=== PATIENT | female | born 1985 | race Caucasian/White ===

== ENCOUNTER 2016-11-02 11:47 | Emergency (ER) | payer OTHER ==
--- NOTE | 2016-11-02 14:54 | ED NURSING NOTES ---
Clinical Report - Nurses [place] [address] [place] [address] 11/02/2016 11:48 [id number] TRI[facility] Triage time 11:56. Acuity: LEVEL 3. Chief Complaint: INJURY TO THE RIGHT INDEX FINGER. CHEKO COMA SCORE: Cheko Coma Scale: 15- eyes open spontaneously (4); best verbal response- oriented x 4 (5); best motor response- obeys commands (6). --12: Tatyana Yip R.N. 11:56 11/02/16. BP: 118/51. HR: 80. RR: 18. O2 saturation: 97%. Temp: 97.8 F (oral). Pain level now: 06/03. --12:01 Tatyana Yip R.N. Weight: 77.1 kg stated. Height/Length: 61 inches Per Patient. BMI: 32.1. --11:59 Tatyana Yip R.N. Medications None. --11:58 Tatyana Yip R.N. Medication/allergy information source: the patient. --12:01 Tatyana Yip R.N. Allergies Naproxen. Valium. --11:58 Tatyana Yip R.N. History Arrived by private vehicle. Historian: patient. Accompanied by family. Primary physician ([facility]). This occurred just prior to arrival. She sustained a laceration from a sharp edge. PAST MEDICAL HX: Tetanus status: unknown. Last normal menstrual period- Oct 2016. SOCIAL HX: Heavy tobacco smoker- 1 pack per day. No alcohol use or drug use. FALL RISK ASSESSMENT: Fall risk assessment completed. No fall risk identified. FUNCTIONAL ASSESSMENT: Functional assessment: no impairments noted. LEARNING NEEDS ASSESSMENT: The learning needs assessment revealed no barriers. --12:01 Tatyana Yip R.N. PROBLEMS: Dental Pain. Sprain. Care. Problems. --11:58 Tatyana Yip R.N. ADDITIONAL SURGERIES: . Dilatation & Curettage. --11:58 Tatyana Yip R.N. Assessment GENERAL / NEURO / PSYCH: The patient is awake and alert, is oriented and cooperative and appears uncomfortable. She has good eye contact. ( finger cleaned and 4x4 applied). RESPIRATORY: Respirations not labored. SKIN: Skin is warm and dry. --12:01 Tatyana Yip R.N. Interventions ID and allergy band on patient. To waiting room. --12:01 Tatyana Yip R.N. NURSING PROGRESS NOTES 13:35 no answer when called, the [facility] said the pt had to run an errand and would be back in 5 minutes. --13:56 Tatyana Yip R.N. Wound cleansed with sterile saline. --14:32 Ayanna Erazo ER Tech1 ( pt. comes when called at 1415. States she had to take her friend to work.). --14:33 Ayanna Erazo ER Tech1 Applied dressing consisting of Band-Aid, following the application of antibiotic ointment. --14:57 Ayanna Erazo ER Tech1 14:59 11/02/2016 TDAP IM 0.5 mL given. (Lot#: [id number]). Given in the left deltoid. Allergies verified and confirmed 5 rights. Vaccine information statement provided to the patient (adacel). --14:59 Aide Henderson R.N. DISPOSITION / DISCHARGE Departure time: 1505. Condition at departure: improved and stable. Reviewed warnings. Reviewed medication(s) side effects information. Treatments reviewed. Reviewed referrals. Patient verbalized understanding. Written instructions provided in Romanian. The patient was discharged by the physician child care assistant. She was discharged home and accompanied by family. She left the Emergency Department ambulatory and via private vehicle. Patient driving. --15:06 Aide Henderson R.N. 15:04 11/02/16. BP: 118/51. HR: 80. RR: 18. O2 saturation: 97%. Temp: 97.8 F. Pain level now: 06/03. --15:06 Aide Henderson R.N. ( pt refused bandage.). --15:06 Aide Henderson R.N. Locked/Released at 11/06/2016 11:50 by Aide Henderson R.N.
--- NOTE | 2016-11-02 14:54 | ED CLINICAL REPORT ---
Clinical Report - Physicians/Mid Levels [facility] [address] [place] [address] 11/02/2016 11:48 [id number] Time Seen: 14:46 Nov 02 2016. Arrived- By private vehicle. Historian- patient. HISTORY OF PRESENT ILLNESS Chief Complaint: Injury to finger. The injury happened just prior to arrival. Occurred at home. The patient sustained a laceration. Patient is experiencing mild pain. Patient denies injury to the head or neck. ( patient with a right index finger laceration, no prior injury). REVIEW OF SYSTEMS The patient sustained a single laceration. No numbness. All systems otherwise negative, except as recorded above. PAST HISTORY The patient's dominant hand is the right. She has not had a prior injury to the same area. Tetanus immunization status is unknown. SOCIAL HISTORY Smoker- current status unknown. No alcohol use or drug use. ADDITIONAL NOTES The nursing notes have been reviewed. PHYSICAL EXAM Vital Signs: 11/02/2016 11:56 BP: 118/51. HR: 80. RR: 18. O2 saturation: 97%. Temp: 97.8 F. Pain level now: 8/10. Appearance: Alert. No acute distress. Head: Head atraumatic. ENT: Ears normal. Nose normal. CVS: Normal heart rate and rhythm. Heart sounds normal. Respiratory: No respiratory distress. Breath sounds normal. Skin: Skin warm. Extremities: Right index finger: 1.0 cm laceration of the dorsal aspect and middle phalanx- SEE LACERATION PROCEDURE NOTE #1; (dorsal lac between pip and dip 2 cm). No foreign body. No limitation in movement. No subungual hematoma or amputation present. Neuro, Vascular and Tendons: Vascular status intact. No pulse deficit present. Capillary refill not prolonged. Sensation intact. Motor intact. No functional tendon deficit or tendon injury seen. Neuro: Oriented X 3. PROGRESS AND PROCEDURES Laceration Repair: Time: 14:47 Nov 02 2016. Location: (r. index). Time-out completed immediately before the procedure. Length: 1 cm. Complexity: simple (local anesthesia used and sutured). Wound depth/shape- linear and involving fascia. Wound is clean. Anesthesia provided by digital block using 0.25% Marcaine. Prepped with Betadine. Wound explored, cleansed and irrigated. Closure of superficial layer: interrupted 5-0 (3 sutures, 5-0 non absorb). Post-procedure: she is stable and there are no complications. Bleeding is controlled and neuro-vascular status is intact distal to the wound. Dressing applied. Tetanus immunization given. Course of Care: patient here in the ER with a laceration, dorsal nature patient stable. No signs of ligamentous injury. no fb. 11/02/2016 11:56 BP: 118/51. HR: 80. RR: 18. O2 saturation: 97%. Temp: 97.8 F. Pain level now: 8/10. Patient is stable. Symptoms better. Patient/family counseled. Disposition: Discharged. Condition: good. CLINICAL IMPRESSION Single deep laceration to the right index finger.No foreign body present. INSTRUCTIONS Elevate affected areas above chest level. Protect wound and keep wound area clean. Apply bacitracin twice daily. Limit use of your hand. Follow-up: Follow up with your doctor in seven days. (Electronically signed by Nata Horan P.A.-C 11/02/2016 14:49)
--- NOTE | 2016-11-02 14:54 | ED ORDER SUMMARY ---
..... Patient: HENRRY WHITTINGTON OrderSheet VisitID: [id number] [address] [place] [address] 31y, F Registration Date/Time: 11/02/2016 ORDER SHEET Weight: 77.1 kg (stated) Allergies: Naproxen, Valium GENERAL ORDERS: MEDICATION ORDERS: Tdap IM 0.5 mL (NOW, per protocol) (14:33 11/02/2016 Rolan Hines) (Ack 14:54 SStone R.N.) (14:59 SStone R.N.) IV FLUIDS: ORDER SHEET NOTES: [Electronically signed by Nata Horan P.A.-C (14:49 11/02/2016)] [Electronically signed by Aide Henderson R.N. (11:50 11/06/2016)] [Electronically locked/signed by Aide Henderson R.N. (11:50 11/06/2016)]
--- NOTE | 2016-11-02 14:54 | ED NURSING NOTES ---
Clinical Report - Nurses [place] [address] [place] [address] 11/02/2016 11:48 [id number] TRIAGE Triage time 11:56. Acuity: LEVEL 3. Chief Complaint: INJURY TO THE RIGHT INDEX FINGER. CHEKO COMA SCORE: Cheko Coma Scale: 15- eyes open spontaneously (4); best verbal response- oriented x 4 (5); best motor response- obeys commands (6). --12: Tatyana Yip R.N. 11:56 11/02/16. BP: 118/51. HR: 80. RR: 18. O2 saturation: 97%. Temp: 97.8 F (oral). Pain level now: 06/03. --12:01 Tatyana Yip R.N. Weight: 77.1 kg stated. Height/Length: 61 inches Per Patient. BMI: 32.1. --11:59 Tatyana Yip R.N. Medications None. --11:58 Tatyana Yip R.N. Medication/allergy information source: the patient. --12:01 Tatyana Yip R.N. Allergies Naproxen. Valium. --11:58 Tatyana Yip R.N. History Arrived by private vehicle. Historian: patient. Accompanied by family. Primary physician ([facility]). This occurred just prior to arrival. She sustained a laceration from a sharp edge. PAST MEDICAL HX: Tetanus status: unknown. Last normal menstrual period- Oct 2016. SOCIAL HX: Heavy tobacco smoker- 1 pack per day. No alcohol use or drug use. FALL RISK ASSESSMENT: Fall risk assessment completed. No fall risk identified. FUNCTIONAL ASSESSMENT: Functional assessment: no impairments noted. LEARNING NEEDS ASSESSMENT: The learning needs assessment revealed no barriers. --12:01 Tatyana Yip R.N. PROBLEMS: Dental Pain. Sprain. Care. Problems. --11:58 Tatyana Yip R.N. ADDITIONAL SURGERIES: . Dilatation & Curettage. --11:58 Tatyana Yip R.N. Assessment GENERAL / NEURO / PSYCH: The patient is awake and alert, is oriented and cooperative and appears uncomfortable. She has good eye contact. ( finger cleaned and 4x4 applied). RESPIRATORY: Respirations not labored. SKIN: Skin is warm and dry. --12:01 Tatyana Yip R.N. Interventions ID and allergy band on patient. To waiting room. --12:01 Tatyana Yip R.N. NURSING PROGRESS NOTES 13:35 no answer when called, [facility] said the pt had to run an errand and would be back in 5 minutes. --13:56 Tatyana Yip R.N. Wound cleansed with sterile saline. --14:32 Ayanna Erazo ER Tech1 ( pt. comes when called at 1415. States she had to take her friend to work.). --14:33 Ayanna Erazo ER Tech1 Applied dressing consisting of Band-Aid, following the application of antibiotic ointment. --14:57 Ayanna Erazo ER Tech1 14:59 11/02/2016 TDAP IM 0.5 mL given. (Lot#: [id number]). Given in the left deltoid. Allergies verified and confirmed 5 rights. Vaccine information statement provided to the patient (adacel). --14:59 Aide Henderson R.N. DISPOSITION / DISCHARGE Departure time: 1505. Condition at departure: improved and stable. Reviewed warnings. Reviewed medication(s) side effects information. Treatments reviewed. Reviewed referrals. Patient verbalized understanding. Written instructions provided in Setswana. The patient was discharged by the physician recreation assistant. She was discharged home and accompanied by family. She left the Emergency Department ambulatory and via private vehicle. Patient driving. --15:06 Aide Henderson R.N. 15:04 11/02/16. BP: 118/51. HR: 80. RR: 18. O2 saturation: 97%. Temp: 97.8 F. Pain level now: 06/03. --15:06 Aide Henderson R.N. ( pt refused bandage.). --15:06 Aide Henderson R.N. Locked/Released at 11/06/2016 11:50 by Aide Henderson R.N.
--- NOTE | 2016-11-02 14:54 | ED CLINICAL REPORT ---
Clinical Report - Physicians/Mid Levels [facility] [address] [place] [address] 11/02/2016 11:48 [facility]ITTINGTON [id number] Time Seen: 14:46 Nov 02 2016. Arrived- By private vehicle. Historian- patient. HISTORY OF PRESENT ILLNESS Chief Complaint: Injury to finger. The injury happened just prior to arrival. Occurred at home. The patient sustained a laceration. Patient is experiencing mild pain. Patient denies injury to the head or neck. ( patient with a right index finger laceration, no prior injury). REVIEW OF SYSTEMS The patient sustained a single laceration. No numbness. All systems otherwise negative, except as recorded above. PAST HISTORY The patient's dominant hand is the right. She has not had a prior injury to the same area. Tetanus immunization status is unknown. SOCIAL HISTORY Smoker- current status unknown. No alcohol use or drug use. ADDITIONAL NOTES The nursing notes have been reviewed. PHYSICAL EXAM Vital Signs: 11/02/2016 11:56 BP: 118/51. HR: 80. RR: 18. O2 saturation: 97%. Temp: 97.8 F. Pain level now: 8/10. Appearance: Alert. No acute distress. Head: Head atraumatic. ENT: Ears normal. Nose normal. CVS: Normal heart rate and rhythm. Heart sounds normal. Respiratory: No respiratory distress. Breath sounds normal. Skin: Skin warm. Extremities: Right index finger: 1.0 cm laceration of the dorsal aspect and middle phalanx- SEE LACERATION PROCEDURE NOTE #1; (dorsal lac between pip and dip 2 cm). No foreign body. No limitation in movement. No subungual hematoma or amputation present. Neuro, Vascular and Tendons: Vascular status intact. No pulse deficit present. Capillary refill not prolonged. Sensation intact. Motor intact. No functional tendon deficit or tendon injury seen. Neuro: Oriented X 3. PROGRESS AND PROCEDURES Laceration Repair: Time: 14:47 Nov 02 2016. Location: (r. index). Time-out completed immediately before the procedure. Length: 1 cm. Complexity: simple (local anesthesia used and sutured). Wound depth/shape- linear and involving fascia. Wound is clean. Anesthesia provided by digital block using 0.25% Marcaine. Prepped with Betadine. Wound explored, cleansed and irrigated. Closure of superficial layer: interrupted 5-0 (3 sutures, 5-0 non absorb). Post-procedure: she is stable and there are no complications. Bleeding is controlled and neuro-vascular status is intact distal to the wound. Dressing applied. Tetanus immunization given. Course of Care: patient here in the ER with a laceration, dorsal nature patient stable. No signs of ligamentous injury. no fb. 11/02/2016 11:56 BP: 118/51. HR: 80. RR: 18. O2 saturation: 97%. Temp: 97.8 F. Pain level now: 8/10. Patient is stable. Symptoms better. Patient/family counseled. Disposition: Discharged. Condition: good. CLINICAL IMPRESSION Single deep laceration to the right index finger.No foreign body present. INSTRUCTIONS Elevate affected areas above chest level. Protect wound and keep wound area clean. Apply bacitracin twice daily. Limit use of your hand. Follow-up: Follow up with your doctor in seven days. (Electronically signed by Nata Horan P.A.-C 11/02/2016 14:49)
--- NOTE | 2016-11-02 14:54 | ED ORDER SUMMARY ---
..... Patient: HENRRY WHITTINGTON OrderSheet [facility] VisitID: [id number] [address] [place] [address] 31y, F Registration Date/Time: 11/02/2016 ORDER SHEET Weight: 77.1 kg (stated) Allergies: Naproxen, Valium GENERAL ORDERS: MEDICATION ORDERS: Tdap IM 0.5 mL (NOW, per protocol) (14:33 11/02/2016 Rolan Hines) (Ack 14:54 SStone R.N.) (14:59 SStone R.N.) IV FLUIDS: ORDER SHEET NOTES: [Electronically signed by Nata Horan P.A.-C (14:49 11/02/2016)] [Electronically signed by Aide Henderson R.N. (11:50 11/06/2016)] [Electronically locked/signed by Aide Henderson R.N. (11:50 11/06/2016)]
--- NOTE | 2016-11-06 11:51 | ED MAR SUMMARY ---
..... Medication Administration Record [facility] [address] [place] [address] Patient: HENRRY WHITTINGTON Visit ID: [id number] 31y, F Weight: 77.1 kg Height/Length: 61 in BMI: 32.1 ALLERGIES: Naproxen, Valium Given 14:59 11/02/2016 Aide Henderson R.N. Medication Administered: TDAP [IM], Dose: 0.5 mL IM. Medication Ordered: Tdap IM 0.5 mL (NOW, per protocol).
--- NOTE | 2016-11-06 11:51 | ED MAR SUMMARY ---
..... Medication Administration Record [facility] [address] [place] [address] Patient: HENRRY WHITTINGTON Visit ID: [id number] 31y, F Weight: 77.1 kg Height/Length: 61 in BMI: 32.1 ALLERGIES: Naproxen, Valium Given 14:59 11/02/2016 Aide Henderson R.N. Medication Administered: TDAP [IM], Dose: 0.5 mL IM. Medication Ordered: Tdap IM 0.5 mL (NOW, per protocol).
--- NOTE | 2016-11-06 11:51 | ED DISCHARGE INSTRUCTIONS ---
Patient: HENRRY WHITTINGTON General Instructions [facility] VisitID: [id number] [place] [address] 31y, F Registration Date/Time: 11/02/2016 Single deep laceration to the right index finger.No foreign body present. INSTRUCTIONS Elevate affected areas above chest level. Protect wound and keep wound area clean. Apply bacitracin twice daily. Limit use of your hand. Follow-up: Follow up with your doctor in seven days. ADDITIONAL INFORMATION Laceration (All Closures) Alaceration is a cut through the skin. This will usually require stitches (sutures) or gabe if it is deep. Minor cuts may be treated with a surgical tape closure orskin glue. Home care The following guidelines will help you care for your laceration at home: Extremity, face, or trunk wounds Keep the wound clean and dry. If a bandage was applied and it becomes wet or dirty, replace it. Otherwise, leave it in place for the first 24 hours. If stitches or gabe were used, clean the wound daily. After removing the bandage, wash the area with soap and water. Use a wet cotton swab to loosen and remove any blood or crust that forms. The doctor may prescribe an antibiotic cream or ointment to prevent infection. Do not stop taking this medication until you have finished the prescribed course or the doctor tells you to stop. The doctor may also prescribe medications for pain. Follow the doctors instructions for taking these medications. You may remove the bandage to shower as usual after the first 24 hours, but do not soak the area in water (no swimming) until the stitches or gabe are removed. If surgical tape was used, keep the area clean and dry. If it becomes wet, blot it dry with a towel. If skin glue was used, do not scratch, rub, or pick at the adhesive film. Do not place tape directly over the film. Do not apply liquid, ointment, or creams to the wound while the film is in place. Do not clean the wound with peroxide and do not apply ointments. Avoid activities that cause heavy sweating until the film has fallen off. Protect the wound from prolonged exposure to sunlight or tanning lamps. You may shower as usual but do not soak the wound in water (no baths or swimming). The film will fall off by itself in 510 days. Scalp wounds During the first two days, you may carefully rinse your hair in the shower to remove blood, glass or dirt particles. After two days, you may shower and shampoo your hair normally. Do not soak your scalp in the tub or go swimming until the stitches or gabe have been removed. Talk with your doctor before applying any antibiotic ointment to the wound. Mouth wounds Eat soft foods to reduce pain. If the cut is inside of your mouth, clean by rinsing after each meal and at bedtime with a mixture of equal parts water and hydrogen peroxide (do not swallow!). Or, you can use a cotton swab to directly apply hydrogen peroxide onto the cut. Mouth wounds can be painful when eating. You may use an [id number] local numbing solution for pain relief. If this is not available, you may use any numbing solution for teething babies. You may apply this directly to the sores with a cotton-tip swab or with your finger. Follow-up care Follow up with your health care provider. Most skin wounds heal within ten days. Mouth and facial wounds heal within five days. However, even with proper treatment, a wound infection may sometimes occur. Therefore, you should check the wound daily for signs of infection listed below. Stitches should be removed from the face within five days; stitches and gabe should be removed from other parts of the body within 714 days. If dissolving stitches were used in the mouth, these will fall out or dissolve without the need for removal. If tape closures were used, remove them yourself if they have not fallen off after 7 days. Ifskin glue was used, the film will fall off by itself in 510 days. When to seek medical care Get prompt medical attention if any of these occur: Bleeding not controlled by direct pressure Signs of infection, including increasing pain in the wound, increasing wound redness or swelling, or pus coming from the wound Fever of 100.4F (38C) or higher, or as directed by your health care provider Stitches or gabe come apart or fall out or surgical tape falls off before 7 days Wound edges re-open You have been given the following additional information: Laceration, All Limit use of your hand. (Electronically signed by Nata Horan P.A.-C 11/02/2016 14:49)
--- NOTE | 2016-11-06 11:51 | ED MED RECONCILIATION SUMMARY ---
Patient: HENRRY WHITTINGTON Medication Reconciliation Report [facility] VisitID: [id number] [address] [place] [address] 31y, F Registration Date/Time: 11/02/2016 Weight: 77.1 kg Height/Length: 61 in. BMI: 32.1 ALLERGIES: Naproxen, Valium The patient's Home Medications are listed below: NONE. The source(s) of the original Home Medication information: patient The following Medications were given to the patient in the Emergency Department: TDAP [IM] IM 0.5 mL, administered: 11/02/2016 2:59:00 PM The following Medications were prescribed to the patient: None.
--- NOTE | 2016-11-06 11:51 | ED MED RECONCILIATION SUMMARY ---
Patient: HENRRY WHITTINGTON Medication Reconciliation Report [facility] VisitID: [id number] [address] [place] [address] 31y, F Registration Date/Time: 11/02/2016 Weight: 77.1 kg Height/Length: 61 in. BMI: 32.1 ALLERGIES: Naproxen, Valium The patient's Home Medications are listed below: NONE. The source(s) of the original Home Medication information: patient The following Medications were given to the patient in the Emergency Department: TDAP [IM] IM 0.5 mL, administered: 11/02/2016 2:59:00 PM The following Medications were prescribed to the patient: None.
== END 2016-11-02 15:04 | disposition home or self-care (01) ==
LOC: ED SRH 11:47
DX: S61.210A Laceration without foreign body of right index finger without damage to nail, initial encounter (principal); X58.XXXA Exposure to other specified factors, initial encounter; Y93.9 Activity, unspecified; Y92.009 Unspecified place in unspecified non-institutional (private) residence as the place of occurrence of the external cause; Y99.9 Unspecified external cause status; F17.200 Nicotine dependence, unspecified, uncomplicated; Z23 Encounter for immunization; Z88.6 Allergy status to analgesic agent; Z88.5 Allergy status to narcotic agent